=== PATIENT | female | born 1950 | race Caucasian/White ===

== ENCOUNTER 2019-02-21 10:25 | Inpatient (IN) ==
[2019-02-21] MEDS ORDERED: SODIUM CHLORIDE 0.9% 1000ML 1,000 ML IV SCH (10:45)
[2019-02-21 11:36] LABS: Basophils # (auto) 0.02 K/uL (0-0.2); Basophils % (auto) 0.1 %; Eosinophils # (auto) 0.02 K/uL (0-0.5); Eosinophils % (auto) 0.1 %; Hemoglobin 11.8 g/dL (12.0-16.0); Immature Granulocytes # (auto) 0.06 K/uL (0.00-0.02); Immature Granulocytes % (auto) 0.4 %; Lymphocytes # (auto) 2.44 K/uL (1.2-3.4); Lymphocytes % (auto) 14.8 %; Mean Corpuscular Hemoglobin 29.7 pg (25-34); Mean Corpuscular Hgb Conc 32.8 g/dL (32-36); Mean Corpuscular Volume 90.7 fL (80-100); Mean Platelet Volume 8.3 fL (7.4-10.4); Monocytes # (auto) 0.84 K/uL (0.11-0.59); Monocytes % (auto) 5.1 %; Neutrophils % (auto) 79.5 %; Platelet Count 482 K/uL (130-400); RDW Coefficient of Variation 12.7 % (11.5-14.5); RDW Standard Deviation 42.5 fL (36.4-46.3); Red Blood Count 3.97 M/uL (4.2-5.4); White Blood Count 16.48 K/uL (4.8-10.8)
[2019-02-21 11:38] LABS: iSTAT Creatinine 0.7 mg/dl (0.6-1.3); iSTAT Hemoglobin 12.2 g/dl (12.0-16.0); iSTAT Ionized Calcium 1.14 mmol/l (1.12-1.32); iSTAT Potassium 3.7 mEq/L (3.3-5.0)
[2019-02-21] MEDS ORDERED: IOVERSOL 100ml IV PRN (11:54)
[2019-02-21 11:55] LABS: Albumin Level 3.2 gm/dl (3.4-5.0); BUN Creatinine Ratio 15.4 (10-20); Calcium 8.9 mg/dl (8.5-10.1); Creatinine Clr Calc Pharmacy 63.8 ml/min; Est GFR (African American) 93.4; Est GFR (Non-African American) 80.6; Potassium 3.7 mmol/L (3.5-5.1)
[2019-02-21 11:57] LABS: Bilirubin,Total 0.8 mg/dl (0.2-1); C Reactive Protein 1.42 mg/dl (0-0.29); Globulin 3.1 gm/dl (2.5-4.0); Total Protein 6.3 gm/dl (6.4-8.2)
--- NOTE | 2019-02-21 12:13 | CT Scan Report ---
CT abd pelvis IV con only CT DOSE: 430.79 mGycm CLINICAL HISTORY: Perforated diverticulitis. TECHNIQUE: The patient was scanned in a dynamic helical fashion during intravenous administration of 95 cc of Optiray 320. A dose lowering technique was utilized adhering to the principles of ALARA. COMPARISON STUDY: None. FINDINGS: There are minor atelectatic changes at the lung bases. There are several calcified granulomas. There are no significant pleural effusions. No focal hepatic masses are visualized. No gallbladder abnormalities are visualized. No splenic masses are visualized. No pancreatic masses are visualized. There is minor left adrenal gland thickening. There are no solid renal masses. There is no evidence of hydronephrosis. There is no evidence for abdominal aortic dilatation. There are no transition zones indicate bowel obstruction. There is sausagelike thickening of the sigmoid colon with infiltration of the perisigmoid fat. There is a suspected 4 cm temporal/perisigmoid abscess. There is presacral edema. Follow-up will be necessa ry to exclude the possibility although unlikely of a underlying neoplasm. There are no findings to in dicate acute appendicitis. There is no free intraperitoneal air. There is no ascites. There is a small fat-containing left ingui nal hernia. There is no evidence of pathologic adenopathy. The uterus is somewhat bulky with areas of calcification. Multiple uterine fibroids are suspected. IMPRESSION: 1. Sausagelike thickening of the sigmoid colon with infiltration of perisigmoid fat and presacral devorah ma. The findings are indicative of sigmoid diverticulitis. There is associated 4 cm intramural/perisi gmoid abscess. 2. No evidence of bowel obstruction. No evidence of free air 3. Multiple uterine fibroids ACT 112: Negative or not required by law. Electronically signed by: Damion Nazario M.D. 02/21/2019 12:11 PM
[2019-02-21 12:20] LABS: Appearance Urine Clear (Clear); Bilirubin Urine Negative (Negative); Blood Urine Negative (Negative); Color Urine Yellow; Glucose Urine UA Negative (Negative); Ketones Urine Negative (Negative); Leukocyte Esterase Urine Negative (Negative); Nitrite Urine Negative (Negative); Protein Urine Negative (Negative); Specific Gravity Urine 1.004 (1.000-1.030); Urobilinogen Urine Negative (Negative); pH Urine 7.5 (4.5-7.5)
[2019-02-21] MEDS ORDERED: PIPERACILLIN/TAZOBACTAM 4.5 GM/120 ML BAG IV ONE (12:23)
[2019-02-21] MEDS ORDERED: PIPERACILL/TAZOBAC CONSULT ACTIVE PRN ×2 (12:23→14:36)
[2019-02-21] MEDS ORDERED: ACETAMINOPHEN 1,000 MG/100 ML VIAL IV STA (12:48)
--- NOTE | 2019-02-21 13:24 | History & Physical Report ---
Date of Service February 21, 2019 Assessment & Plan (1) Diverticulitis: Patient has acute recurrent diverticulitis complicated with a 4 cm abscess. For now we will admit, continue IV Zosyn as ordered in the ER. Patient to be n.p.o. except for meds and ice chips. Patient's information was reviewed by general surgery, will consult for further recommendations. Consider conservative management of the abscess versus possible percutaneous drainage, will defer to their service. Patient appears to be constipated on review of CT, patient started to have loose watery diarrhea, would consider C. difficile testing considering recent hospitalization with antibiotics. However, current constellation symptoms could be accounted for with current infection. Will also treat external hemorrhoids. (2) HTN (hypertension): Patient is on multiple medications for hypertension include hydrochlorothiazide and irbesartan, can continue these for now and monitor blood pressure. (3) High cholesterol: Patient takes we have a statin which we will continue. (4) Fibromyalgia: Review outpatient medication regimen and order accordingly. History of Present Illness Primary Care Provider: NO PCP This is a 68-year-old female with past medical history of diverticulitis, hypercholesterolemia, fibromyalgia that presents today complaining of abdominal pain. Patient is accompanied by her both are good historians. Patient is from [place] and is visiting this area to [facility] while her son and his travel. Patient was in the hospital in [place] earlier this month with acute diverticulitis and microperforation. She tells me she was hospitalized for a few days but did well and was subsequently discharged with Flagyl and Levaquin p.o. Patient traveled here and continue the antibiotics which she finished 5 days ago. She was doing well up until approximately 1:00 this morning when she had sharp, acute abdominal pain on the left side. She was having nausea but no vomiting. She recognized the symptoms as recurrent diverticulitis and presented to the emergency room for further evaluation. Patient is complaining of some hemorrhoidal pain as she has been having ongoing diarrhea. She notes that she was having diarrhea previously and C. difficile was considered as a diagnosis at the outside facility. However, she was never actually tested and was given a sample collection kit after discharge. She tells me her diarrhea has tapered off quite a bit since then and she does feel constipated at this point. She denies any acute fevers or chills. She also denies any chest pain, shortness of breath, lower extremity edema, palpitations. Allergies Allergy/AdvReac Type Severity Reaction Status Date / Time Sulfa (Sulfonamide Allergy Hives Unverified 02/21/19 12:40 Antibiotics) Home Medications Home Medications Medication Instructions Recorded Confirmed Type aspirin [Aspirin Low Dose] 81 mg PO DAILY 02/21/19 02/21/19 History cholecalciferol (vitamin D3) 800 unit PO UD 02/21/19 02/21/19 History [Vitamin D3] coenzyme Q10 [CoQ-10] 100 mg PO QPM 02/21/19 02/21/19 History garlic 1,000 mg PO QAM 02/21/19 02/21/19 History oqshaqyfbor-wcurfzeiz-olf C-Mn 0 cap PO QAM 02/21/19 02/21/19 History [Glucosamine Chondroitin MaxStr] hydrochlorothiazide 12.5 mg PO QAM 02/21/19 02/21/19 History irbesartan-hydrochlorothiazide 0.5 tab PO QAM 02/21/19 02/21/19 History isosorbide mononitrate 15 mg PO QPM 02/21/19 02/21/19 History loratadine [Claritin] 10 mg PO QAM 02/21/19 02/21/19 History metoprolol tartrate 12.5 mg PO BID 02/21/19 02/21/19 History multivitamin 1 tab PO QAM 02/21/19 02/21/19 History nitroglycerin 0.4 mg SUBLINGUAL DIRECTED PRN 02/21/19 02/21/19 History olopatadine [Patanol] 1 drp OPB BID 02/21/19 02/21/19 History omega 4-lcp-izb-fish oil [Fish Oil] 1 cap PO DAILY 02/21/19 02/21/19 History pantoprazole 40 mg PO DAILYBB 02/21/19 02/21/19 History rosuvastatin 20 mg PO 3XWK 02/21/19 02/21/19 History vit A,C and D-utuiag-auucrelx 1 tab PO QPM 02/21/19 02/21/19 History [Ocuvite with Lutein] vitamin B complex-folic acid [B 1 tab PO QPM 02/21/19 02/21/19 History Complex 1 (with folic acid)] Past Med/Surg History Medical History Fibromyalgia High cholesterol HTN (hypertension) Surgical History H/O tubal ligation Family History Other No pertinent family history Social History Feels Safe at Home: Yes Smoking Status: Never smoker Review of Systems Constitutional: + weakness; no fever, no chills and no fatigue Ear, Nose, Mouth, Throat: as per Subjective / HPI Respiratory: no cough, no chest congestion, no dyspnea and no dyspnea on exertion Cardiovascular: no chest pain, no dyspnea and no dyspnea on exertion Gastrointestinal: + abdominal pain, + bloating, + cramping, + constipation and + diarrhea/loose stools; no nausea and no vomiting Genitourinary: no dysuria, no difficulty urinating, no urinary frequency, no urinary hesitancy and no urinary urgency Integumentary: as per Subjective / HPI Neurologic: as per Subjective / HPI Psychiatric: as per Subjective / HPI Physical Exam Constitutional: well nourished and cooperative; no acute distress ENMT: external ear and nose normal, oropharynx normal Neck: trachea midline, no thyromegaly Respiratory: Auscultation: lungs clear to auscultation bilaterally; no crackles, no rales, no rhonchi and no wheezes Cardiovascular: Rate/Rhythm: regular rate and regular rhythm Heart Sounds: normal S1 and normal S2 Vessels: no JVD and no carotid bruit Gastrointestinal (Abdomen): Inspection/Auscultation: abdomen normal to inspection Percussion/Palpation: + abdomen tender and abdomen soft; no guarding, abdomen not rigid and no hepatosplenomegaly Musculoskeletal: no cyanosis or clubbing, extremities motor strength 5/5 Psychiatric: A+Ox3, euthymic affect Results & Data Vital Signs (Past 12 Hours) Vital Signs Temp Pulse Pulse Resp BP BP Pulse Ox 02/21/19 12:26 81 18 138/64 98 02/21/19 10:28 36.6 C 81 20 124/77 97 Laboratory Results White count is 16.48. Hemoglobin is 11.8. BMP is unremarkable. C-reactive protein is elevated at 1.42. UA is negative. Diagnostic Findings CT abd pelvis IV con only CT DOSE: 430.79 mGycm CLINICAL HISTORY: Perforated diverticulitis. TECHNIQUE: The patient was scanned in a dynamic helical fashion during intravenous administration of 95 cc of Optiray 320. A dose lowering technique was utilized adhering to the principles of ALARA. COMPARISON STUDY: None. FINDINGS: There are minor atelectatic changes at the lung bases. There are several calcified granulomas. There are no significant pleural effusions. No focal hepatic masses are visualized. No gallbladder abnormalities are visualized. No splenic masses are visualized. No pancreatic masses are visualized. There is minor left adrenal gland thickening. There are no solid renal masses. There is no evidence of hydronephrosis. There is no evidence for abdominal aortic dilatation. There are no transition zones indicate bowel obstruction. There is sausagelike thickening of the sigmoid colon with infiltration of the perisigmoid fat. There is a suspected 4 cm temporal/perisigmoid abscess. There is presacral edema. Follow-up will be necessary to exclude the possibility although unlikely of a underlying neoplasm. There are no findings to indicate a cute appendicitis. There is no free intraperitoneal air. There is no ascites. There is a small fat- containing left inguinal hernia. There is no evidence of pathologic adenopathy. The uterus is somewhat bulky with areas of calcification. Multiple uterine fibroids are suspected. IMPRESSION: 1. Sausagelike thickening of the sigmoid colon with infiltration of perisigmoid fat and presacral edema. The findings are indicative of sigmoid diverticulitis. There is associated 4 cm intramural/perisigmoid abscess. 2. No evidence of bowel obstruction. No evidence of free air 3. Multiple uterine fibroids PG Care Time/CCT Total # of Minutes Spent Total Time Spent with Patient: Total time spent is greater than 50% in coordination of care (as documented) at patient's floor/unit and/or counseling patient:
[2019-02-21] MEDS ORDERED: HYDROCORTISONE HC 2.5% CRM 30GM TUBE EXT PRN (14:36)
[2019-02-21] MEDS ORDERED: PIPERACILLIN/TAZOBACTAM 3.375 GM/115 ML BAG IV SCH (14:36)
[2019-02-21] MEDS ORDERED: ONDANSETRON INJ 2 MG/ML 2 ML VIAL IV PRN (14:36)
[2019-02-21] MEDS ORDERED: NITROGLYCERIN SL 0.4 MG/TAB TAB SL PRN (14:36)
--- NOTE | 2019-02-21 14:36 | Emergency Department Note ---
Entered by Marshal Pantoja acting as a scribe for Keshav Benoit DO History of Present Illness General Chief complaint: GI Assessment Stated complaint: PERFORATED BOWEL, GAS, UNCOMFORTABLE, DIARRHEA Time Seen by Provider: 02/21/19 10:32 Source: patient History of Present Illness Onset (ago): day(s) (yesterday) Location: abdomen Pain Consistency: + intermittent Maximum Pain Intensity: 3 Quality: + other (loose stool) Relieved By: + medication (Imodium) Associated symptoms: + denies other symptoms (fever, blood in stool); no nausea/vomiting The patient is a 68 y/o female who presents to the ED w/ CC of intermittent loose stool beginning yesterday. She notes she is visiting from [place]. The patient states she was diagnosed with diverticulitis two weeks ago and started on 10 d ays of Levaquin and Flagyl. She reports she finished her antibiotics four days ago, and she did not need surgery because it was medically managed. The patient notes she also has a history of IBS and believes that is also acting up. She states her symptoms returned yesterday, and she had over 20 small bouts of loose stool. The patient reports she called her PCP and was told to take three doses of Imodium. She notes her symptoms finally started to get better after her third dose which she took about 13 hours ago. The patient states she has had similar episodes of abdominal pain before but did not know what it was. She reports she thinks she took too much Imodium because now she knows she has a BM that is being held just before her rectum. The patient notes she is not able to use the restroom and is not able to use an enema per her PCP's guidance. She denies fevers, nausea, vomiting, blood in her stool, tobacco use, and alcohol use. She notes a history of HTN, fibromyalgia, high cholesterol, and a tubal ligation. Home Medications Home Medications Medication Instructions Recorded Confirmed Type aspirin [Aspirin Low Dose] 81 mg PO DAILY 02/21/19 02/21/19 History cholecalciferol (vitamin D3) 800 unit PO UD 02/21/19 02/21/19 History [Vitamin D3] coenzyme Q10 [CoQ-10] 100 mg PO QPM 02/21/19 02/21/19 History garlic 1,000 mg PO QAM 02/21/19 02/21/19 History nowemtafhnz-quexkmcwm-tip C-Mn 0 cap PO QAM 02/21/19 02/21/19 History [Glucosamine Chondroitin MaxStr] hydrochlorothiazide 12.5 mg PO QAM 02/21/19 02/21/19 History irbesartan-hydrochlorothiazide 0.5 tab PO QAM 02/21/19 02/21/19 History isosorbide mononitrate 15 mg PO QPM 02/21/19 02/21/19 History loratadine [Claritin] 10 mg PO QAM 02/21/19 02/21/19 History metoprolol tartrate 12.5 mg PO BID 02/21/19 02/21/19 History multivitamin 1 tab PO QAM 02/21/19 02/21/19 History nitroglycerin 0.4 mg SUBLINGUAL DIRECTED PRN 02/21/19 02/21/19 History olopatadine [Patanol] 1 drp OPB BID 02/21/19 02/21/19 History omega 9-urq-tyf-fish oil [Fish Oil] 1 cap PO DAILY 02/21/19 02/21/19 History pantoprazole 40 mg PO DAILYBB 02/21/19 02/21/19 History rosuvastatin 20 mg PO 3XWK 02/21/19 02/21/19 History vit A,C and O-bxdwzd-nzzzsmzr 1 tab PO QPM 02/21/19 02/21/19 History [Ocuvite with Lutein] vitamin B complex-folic acid [B 1 tab PO QPM 02/21/19 02/21/19 History Complex 1 (with folic acid)] Allergies Allergy/AdvReac Type Severity Reaction Status Date / Time Sulfa (Sulfonamide Allergy Hives Unverified 02/21/19 12:40 Antibiotics) Past Med/Surg History Medical History Fibromyalgia High cholesterol HTN (hypertension) Surgical History H/O tubal ligation Family History Other No pertinent family history Social History Feels Safe at Home: Yes Smoking Status: Never smoker Review of Systems See HPI for pertinent positives & negatives. and A total of 10 systems reviewed and were otherwise negative Physical Exam Vital Signs Vital Signs - 24 hr 02/21/19 10:28 02/21/19 12:26 Temperature 36.6 C Temperature Source Oral Pulse Rate 81 Pulse Rate [Finger] 81 Respiratory Rate 20 18 Respiratory Effort / Characteristics Non-Labored Non-Labored Spontaneous Respiratory Depth Normal Normal Respiratory Pattern Regular Regular Blood Pressure 124/77 Blood Pressure [Right Arm] 138/64 Blood Pressure Mean 92 Blood Pressure Mean [Right Arm] 88 Blood Pressure Position Sitting Pulse Oximetry 97 98 Oxygen Delivery Method Room Air Room Air Sepsis Recent Fever Within 48 Hours No Sepsis Action Taken by Nursing No Action Required GENERAL: Patient is awake, alert, and in no acute distress.Patient is resting comfortably and showing no signs of anxiety EYES: The conjunctivae are clear. The pupils are round and reactive. EARS, NOSE, MOUTH AND THROAT: The nose is without any evidence of any deformity. Mucous membranes are moist.Tongue is midline NECK: The neck is nontender and supple. RESPIRATORY: Normal respiratory effort is noted. There is no evidence of wheezing rhonchi or rales to auscultation. CARDIOVASCULAR: Regular rate and rhythm noted. There no murmurs rubs or gallops normal S1 normal S2 GASTROINTESTINAL: The abdomen is soft. Bowel sounds are present in all quadrants. Mildly distended. Left sided tenderness to palpation without guarding or rigidity. MUSCULOSKELETAL/EXTREMITIES: There is no evidence of gross deformity. Full range of motion is noted in the hips and shoulders. SKIN: There is no obvious evidence of any rash. There are no petechiae, pallor or cyanosis noted. NEUROLOGIC: Patient is awake alert and oriented x3. Course Course 1042: Past medical records reviewed. The patient was evaluated in room B04B. A complete history and physical exam was performed. 1229: Upon reevaluation, the patient is resting comfortably. I discussed laboratory and radiographic results with her. 1238: I reviewed the patient's case with Arturo Chang PA-C, General Surgery. He recommends a hospitalist evaluation with a general surgery consult. 1254: I discussed my consult with the patient. She verbalized agreement of the treatment plan. The patient will be evaluated for further management and care. 1255: I reviewed the patient's case with Dr. Mcclain, [facility] Hospitalist. He will evaluate the patient for further management. Administered Medications Ioversol (Optiray 320 100ml) 95 ml IV ONCE PRN PRN Reason: Interaction Checking Stop: 02/25/19 11:53 Last Admin: 02/21/19 11:55 Dose: 95 ml Documented by: [id number] Discontinued Medications Sodium Chloride (Nss 1000ml) 1,000 mls @ 999 mls/hr IV .Q1H1M DELLA Stop: 02/21/19 11:45 Last Infusion: 02/21/19 13:56 Dose: 0 mls/hr Documented by: [id number] Admin: 02/21/19 11:40 Dose: 999 mls/hr Documented by: [id number] Piperacillin Sod/Tazobactam Sod (Zosyn) 4.5 gm in 120 mls @ 240 mls/hr IV NOW ONE Stop: 02/21/19 12:52 Last Infusion: 02/21/19 13:10 Dose: 0 mls/hr Documented by: [id number] Admin: 02/21/19 12:30 Dose: 240 mls/hr Documented by: [id number] Acetaminophen (Ofirmev) 1,000 mg in 100 mls @ 400 mls/hr IV NOW STA Stop: 02/21/19 13:02 Last Infusion: 02/21/19 13:25 Dose: 0 mls/hr Documented by: [id number] Admin: 02/21/19 13:08 Dose: 400 mls/hr Documented by: [id number] Medical Decision Making Differential Diagnosis Differential diagnoses includes but is not limited to gastritis, peptic ulcer disease, GERD, gallbladder disease, pancreatitis, small bowel obstruction, acute coronary syndrome, pericarditis, ischemic bowel, irritable bowel disease, irritable bowel syndrome, appendicitis, diverticulitis, malignancy, hernia, urinary tract infection, torsion, perforation, trauma, infectious. Medical Records Attestation: I reviewed the patient's medical records. Home Medications Current Medication List: was personally reviewed by me Laboratory Data Attestation: I reviewed the patient's lab results. Result diagrams: 02/21/19 11:20 02/21/19 11:20 Lab Results 02/21/19 02/21/19 02/21/19 Range/Units 11:20 11:20 11:20 WBC 16.48 H (4.8-10.8) K/uL RBC 3.97 L (4.2-5.4) M/uL Hgb 11.8 L (12.0-16.0) g/dL POC Hgb (12.0-16.0) g/dl Hct 36.0 L (37-47) % POC Hct (37-47) % MCV 90.7 (80-100) fL MCH 29.7 (25-34) pg MCHC 32.8 (32-36) g/dL RDW Std Deviation 42.5 (36.4-46.3) fL RDW Coeff of Mary 12.7 (11.5-14.5) % Plt Count 482 H (130-400) K/uL MPV 8.3 (7.4-10.4) fL Immature Gran % (Auto) 0.4 % Neut % (Auto) 79.5 % Lymph % (Auto) 14.8 % Hall % (Auto) 5.1 % Eos % (Auto) 0.1 % Baso % (Auto) 0.1 % Immature Gran # (Auto) 0.06 H (0.00-0.02) K/uL Neut # (Auto) 13.10 H (1.4-6.5) K/uL Lymph # (Auto) 2.44 (1.2-3.4) K/uL Hall # (Auto) 0.84 H (0.11-0.59) K/uL Eos # (Auto) 0.02 (0-0.5) K/uL Baso # (Auto) 0.02 (0-0.2) K/uL ESR 31 H (0-21) mm/hr POC Sodium (135-144) mEq/L Sodium 135 L (136-145) mmol/L POC Potassium (3.3-5.0) mEq/L Potassium 3.7 (3.5-5.1) mmol/L POC Chloride (101-112) mEq/L Chloride 100 (98-107) mmol/L Carbon Dioxide 32 (21-32) mmol/L POC Total CO2 (24-31) mEq/l Anion Gap 3.0 (3-11) POC Anion Gap (16-25) mmol/L POC BUN (7-18) mg/dl BUN 12 (7-18) mg/dl Creatinine 0.76 (0.6-1.2) mg/dl POC Creatinine (0.6-1.3) mg/dl Est Cr Clr Drug Dosing 63.8 ml/min Est GFR ( Amer) 93.4 Est GFR (Non-Af Amer) 80.6 BUN/Creatinine Ratio 15.4 (10-20) Glucose 97 (70-99) mg/dl POC Glucose (other) (70-99) mg/dl Calcium 8.9 (8.5-10.1) mg/dl POC Ioniz Calcium Leidy (1.12-1.32) mmol/l Total Bilirubin 0.8 (0.2-1) mg/dl AST 32 (15-37) U/L ALT 39 (12-78) U/L Alkaline Phosphatase 70 (45-117) U/L C-Reactive Protein 1.42 H (0-0.29) mg/dl Total Protein 6.3 L (6.4-8.2) gm/dl Albumin 3.2 L (3.4-5.0) gm/dl Globulin 3.1 (2.5-4.0) gm/dl Albumin/Globulin Ratio 1.0 (0.9-2) Lipase 55 L (73-393) U/L Urine Color Urine Appearance (Clear) Urine pH (4.5-7.5) Ur Specific Mayer (1.000-1.030) Urine Protein (Negative) Urine Glucose (UA) (Negative) Urine Ketones (Negative) Urine Blood (Negative) Urine Nitrite (Negative) Urine Bilirubin (Negative) Urine Urobilinogen (Negative) Ur Leukocyte Esterase (Negative) 02/21/19 02/21/19 Range/Units 11:23 12:00 WBC (4.8-10.8) K/uL RBC (4.2-5.4) M/uL Hgb (12.0-16.0) g/dL POC Hgb 12.2 (12.0-16.0) g/dl Hct (37-47) % POC Hct 36 L (37-47) % MCV (80-100) fL MCH (25-34) pg MCHC (32-36) g/dL RDW Std Deviation (36.4-46.3) fL RDW Coeff of Mary (11.5-14.5) % Plt Count (130-400) K/uL MPV (7.4-10.4) fL Immature Gran % (Auto) % Neut % (Auto) % Lymph % (Auto) % Hall % (Auto) % Eos % (Auto) % Baso % (Auto) % Immature Gran # (Auto) (0.00-0.02) K/uL Neut # (Auto) (1.4-6.5) K/uL Lymph # (Auto) (1.2-3.4) K/uL Hall # (Auto) (0.11-0.59) K/uL Eos # (Auto) (0-0.5) K/uL Baso # (Auto) (0-0.2) K/uL ESR (0-21) mm/hr POC Sodium 134 L (135-144) mEq/L Sodium (136-145) mmol/L POC Potassium 3.7 (3.3-5.0) mEq/L Potassium (3.5-5.1) mmol/L POC Chloride 95 L (101-112) mEq/L Chloride (98-107) mmol/L Carbon Dioxide (21-32) mmol/L POC Total CO2 30 (24-31) mEq/l Anion Gap (3-11) POC Anion Gap 14.0 L (16-25) mmol/L POC BUN 11 (7-18) mg/dl BUN (7-18) mg/dl Creatinine (0.6-1.2) mg/dl POC Creatinine 0.7 (0.6-1.3) mg/dl Est Cr Clr Drug Dosing ml/min Est GFR ( Amer) Est GFR (Non-Af Amer) BUN/Creatinine Ratio (10-20) Glucose (70-99) mg/dl POC Glucose (other) 100 H (70-99) mg/dl Calcium (8.5-10.1) mg/dl POC Ioniz Calcium Leidy 1.14 (1.12-1.32) mmol/l Total Bilirubin (0.2-1) mg/dl AST (15-37) U/L ALT (12-78) U/L Alkaline Phosphatase (45-117) U/L C-Reactive Protein (0-0.29) mg/dl Total Protein (6.4-8.2) gm/dl Albumin (3.4-5.0) gm/dl Globulin (2.5-4.0) gm/dl Albumin/Globulin Ratio (0.9-2) Lipase (73-393) U/L Urine Color Yellow Urine Appearance Clear (Clear) Urine pH 7.5 (4.5-7.5) Ur Specific Mayer 1.004 (1.000-1.030) Urine Protein Negative (Negative) Urine Glucose (UA) Negative (Negative) Urine Ketones Negative (Negative) Urine Blood Negative (Negative) Urine Nitrite Negative (Negative) Urine Bilirubin Negative (Negative) Urine Urobilinogen Negative (Negative) Ur Leukocyte Esterase Negative (Negative) Imaging Data Radiologist's Impression: Radiology results as stated below per my review and the radiologist's interpretation: CT abd pelvis IV con only CT DOSE: 430.79 mGycm CLINICAL HISTORY: Perforated diverticulitis. TECHNIQUE: The patient was scanned in a dynamic helical fashion during intravenous administration of 95 cc of Optiray 320. A dose lowering technique was utilized adhering to the principles of ALARA. COMPARISON STUDY: None. FINDINGS: There are minor atelectatic changes at the lung bases. There are several calcified granulomas. There are no significant pleural effusions. No focal hepatic masses are visualized. No gallbladder abnormalities are visualized. No splenic masses are visualized. No pancreatic masses are visualized. There is minor left adrenal gland thickening. There are no solid renal masses. There is no evidence of hydronephrosis. There is no evidence for abdominal aortic dilatation. There are no transition zones indicate bowel obstruction. There is sausagelike thickening of the sigmoid colon with infiltration of the perisigmoid fat. There is a suspected 4 cm temporal/perisigmoid abscess. There is presacral edema. Follow-up will be necessary to exclude the possibility although unlikely of a underlying neoplasm. There are no findings to indicate acute appendicitis. There is no free intraperitoneal air. There is no ascites. There is a small fat- containing left inguinal hernia. There is no evidence of pathologic adenopathy. The uterus is somewhat bulky with areas of calcification. Multiple uterine fibroids are suspected. IMPRESSION: 1. Sausagelike thickening of the sigmoid colon with infiltration of perisigmoid fat and presacral edema. The findings are indicative of sigmoid diverticulitis. There is associated 4 cm intramural/perisigmoid abscess. 2. No evidence of bowel obstruction. No evidence of free air 3. Multiple uterine fibroids ACT 112: Negative or not required by law. Electronically signed by: Damion Nazario M.D. 02/21/2019 12:11 PM Blood Pressure Blood Pressure Findings: Elevated blood pressure Blood Pressure Disposition: further management by hospitalist MDM Narrative The patient is a 68-year-old female who presented to the emergency department for an evaluation of left-sided abdominal pain. The patient was recently diagnosed with diverticulitis with microperforation. She was started on a course of antibiotics but finished antibiotics approximately 5 days ago. She noticed a return of her pain recently. She is not currently near her home and is visiting from out of town. The patient was treated with IV fluids and IV antibiotics. She was reevaluated multiple times. I discussed the patient's laboratory and radiographic studies with her. She does appear to have signs of diverticulitis with abscess. I discussed her case with the on-call general surgical group. They did recommend the patient be admitted to the medicine team for further medical treatment and they would follow in consultation. I discussed this case with the on-call [facility] hospitalist group. They have agreed to evaluate the patient in the emergency department for further ma nagement and disposition. The patient was agreeable with the plan. Impression & Plan Diverticulitis, Colonic diverticular abscess, Left sided abdominal pain Discharge Plan Visit Data Chief Complaint: GI Assessment Stated Complaint: PERFORATED BOWEL, GAS, UNCOMFORTABLE, DIARRHEA ED Provider: Keshav Benoit Discharge Problem: Diverticulitis, Colonic diverticular abscess, Left sided abdominal pain Patient Disposition: Being Evaluated by Hospitalist Discharge Instructions Interventions: ED Discharge Assessment Last Done: 02/21/19 14:05 The scribe's documentation has been prepared under my direction and personally reviewed by me in its entirety. I confirm that the note above accurately reflects all work, treatment, procedures, and medical decision making performed by me.
--- NOTE | 2019-02-21 14:39 | Surgery Consultation ---
Date of Consultation February 21, 2019 Assessment & Plan (1) Colonic diverticular abscess: Diverticulitis with abscess, no acute abdominal findings. Continue IV Zosyn. Monitor her progress over the next 24-48 hours, she is scheduled to return to [place] on Sunday. Keep NPO for tonight. History of Present Illness Attending Physician: Adriano Mcclain DO History of Present Illness 68 y/o female recently treated for diverticulitis with microperforation at her home in [place]. She is town to babysit her grandchildren while her son attends the [employer]. This was her first known attack, although she had some symptoms in the past not as severe. She was admitted for a few days, discharged on po abx which she finished on Sunday. She was feeling well until 1 AM last night when her pain returned acutely. No fevers or chills. Has been having loose BMs and was eating regular diet. Allergies Allergy/AdvReac Type Severity Reaction Status Date / Time Sulfa (Sulfonamide Allergy Hives Unverified 02/21/19 12:40 Antibiotics) Home Medications Home Medications Medication Instructions Recorded Confirmed Type aspirin [Aspirin Low Dose] 81 mg PO DAILY 02/21/19 02/21/19 History cholecalciferol (vitamin D3) 800 unit PO UD 02/21/19 02/21/19 History [Vitamin D3] coenzyme Q10 [CoQ-10] 100 mg PO QPM 02/21/19 02/21/19 History garlic 1,000 mg PO QAM 02/21/19 02/21/19 History cqpufppbzce-cauamobve-cqo C-Mn 0 cap PO QAM 02/21/19 02/21/19 History [Glucosamine Chondroitin MaxStr] hydrochlorothiazide 12.5 mg PO QAM 02/21/19 02/21/19 History irbesartan-hydrochlorothiazide 0.5 tab PO QAM 02/21/19 02/21/19 History isosorbide mononitrate 15 mg PO QPM 02/21/19 02/21/19 History loratadine [Claritin] 10 mg PO QAM 02/21/19 02/21/19 History metoprolol tartrate 12.5 mg PO BID 02/21/19 02/21/19 History multivitamin 1 tab PO QAM 02/21/19 02/21/19 History nitroglycerin 0.4 mg SUBLINGUAL DIRECTED PRN 02/21/19 02/21/19 History olopatadine [Patanol] 1 drp OPB BID 02/21/19 02/21/19 History omega 0-iwa-qkc-fish oil [Fish Oil] 1 cap PO DAILY 02/21/19 02/21/19 History pantoprazole 40 mg PO DAILYBB 02/21/19 02/21/19 History rosuvastatin 20 mg PO 3XWK 02/21/19 02/21/19 History vit A,C and C-xxvrzj-hufwnmiu 1 tab PO QPM 02/21/19 02/21/19 History [Ocuvite with Lutein] vitamin B complex-folic acid [B 1 tab PO QPM 02/21/19 02/21/19 History Complex 1 (with folic acid)] Patient History Medical History Fibromyalgia High cholesterol HTN (hypertension) Surgical History H/O tubal ligation Family History Other No pertinent family history Social History Preferred Language: [place] Communication Ability: Effective Health Aide Required: No Beliefs That Will Affect Care: None Current Living Situation: Spouse Other Information That Helps Us Care for You: No Feels Safe at Home: Yes Safety Concerns: Feels Safe At This Time Smoking Status: Never smoker Hx Alcohol Use: No Hx Substance Use: No Review of Systems Constitutional: no fever, no chills and no anorexia Gastrointestinal: + diarrhea/loose stools; no nausea colonoscopy in 2018, diverticulosis and polypectomy Physical Exam Constitutional: WD/WN, vitals as above Respiratory: normal respiratory effort Cardiovascular: RRR, no murmur, no edema Gastrointestinal (Abdomen): Inspection/Auscultation: abdomen not distended Percussion/Palpation: + abdomen tender (minimal) and abdomen soft; no guarding Results & Data Vital Signs (Past 12 Hours) Vital Signs Temp Pulse Pulse Resp BP BP Pulse Ox 02/21/19 14:00 82 18 111/56 L 93 02/21/19 12:26 81 18 138/64 98 02/21/19 10:28 36.6 C 81 20 124/77 97 PG Care Time/CCT Total # of Minutes Spent Total Time Spent with Patient: Total time spent is greater than 50% in coordination of care (as documented) at patient's floor/unit and/or counseling patient:
[2019-02-21] MEDS: SODIUM CHLORIDE 0.9% 1000ML 1,000 ML IV SCH ×2 (15:08→23:54)
[2019-02-21] MEDS: ROSUVASTATIN CALCIUM 20 MG TAB PO SCH (15:57)
[2019-02-21] MEDS: ENOXAPARIN INJ 40 MG/0.4 ML SYR SQ SCH (15:58)
[2019-02-21] MEDS: CHOLECALCIFEROL (VITAMIN D) 400 UNITS TABLET PO SCH (15:58)
[2019-02-21] MEDS: PIPERACILLIN/TAZOBACTAM 3.375 GM in DEXTROSE 5% 100 ML IV SCH (19:54)
[2019-02-21] MEDS ORDERED: NON-FORMULARY MEDICATION (Coenzyme Q10 [Coq-10] 100 MG) PO SCH (21:00)
[2019-02-21] MEDS: ISOSORBIDE MONO EXTENDED REL 30 MG TABCR PO SCH (21:33)
[2019-02-21] MEDS: METOPROLOL TARTRATE 25 MG TAB PO SCH (21:34)
[2019-02-21] MEDS: VITAMIN B COMPLEX TAB PO SCH (21:34)
[2019-02-21] MEDS: CEROVITE ADV FORMULA TAB PO SCH (21:34)
[2019-02-21] MEDS: ACETAMINOPHEN 325 MG TAB PO PRN (21:58)
[2019-02-22] MEDS: PIPERACILLIN/TAZOBACTAM 3.375 GM in DEXTROSE 5% 100 ML IV SCH ×3 (02:24→17:50)
[2019-02-22 05:37] LABS: Basophils # (auto) 0.01 K/uL (0-0.2); Basophils % (auto) 0.1 %; Eosinophils # (auto) 0.02 K/uL (0-0.5); Eosinophils % (auto) 0.1 %; Hematocrit (blood only) 31.9 % (37-47); Hemoglobin 10.3 g/dL (12.0-16.0); Immature Granulocytes # (auto) 0.04 K/uL (0.00-0.02); Immature Granulocytes % (auto) 0.3 %; Lymphocytes # (auto) 1.43 K/uL (1.2-3.4); Mean Corpuscular Hemoglobin 29.2 pg (25-34); Mean Corpuscular Hgb Conc 32.3 g/dL (32-36); Mean Corpuscular Volume 90.4 fL (80-100); Mean Platelet Volume 8.1 fL (7.4-10.4); Monocytes # (auto) 1.03 K/uL (0.11-0.59); Monocytes % (auto) 7.2 %; Neutrophils # (auto) 11.72 K/uL (1.4-6.5); Neutrophils % (auto) 82.3 %; Platelet Count 417 K/uL (130-400); RDW Coefficient of Variation 13.2 % (11.5-14.5); RDW Standard Deviation 43.2 fL (36.4-46.3); Red Blood Count 3.53 M/uL (4.2-5.4); White Blood Count 14.25 K/uL (4.8-10.8)
[2019-02-22 06:04] LABS: Calcium 8.2 mg/dl (8.5-10.1); Creatinine Clr Calc Pharmacy 73.8 ml/min; Est GFR (African American) 101.4; Est GFR (Non-African American) 87.5; Potassium 3.5 mmol/L (3.5-5.1)
[2019-02-22] MEDS: PANTOprazole 40 MG TAB PO SCH (06:28)
--- NOTE | 2019-02-22 08:21 | Surgery Progress Note ---
Date of Service February 22, 2019 Assessment & Plan (1) Colonic diverticular abscess: can begin clears WBC improved cont Zosyn also seen by Dr. Garcia Subjective feels better, BM this AM, no fevers or chills Physical Exam Gastrointestinal (Abdomen): Percussion/Palpation: abdomen soft; abdomen nontender Results & Data Vital Signs (Past 12 Hours) Vital Signs Temp Pulse Resp BP Pulse Ox 02/22/19 08:05 37.1 C 76 18 134/74 97 02/22/19 00:26 37 C 02/21/19 23:10 37.5 C 72 18 97/57 L 93 PG Care Time/CCT Total # of Minutes Spent Total Time Spent with Patient: Total time spent is greater than 50% in coordination of care (as documented) at patient's floor/unit and/or counseling patient:
[2019-02-22] MEDS ORDERED: MULTIVITAMIN TAB PO SCH (09:00)
[2019-02-22] MEDS ORDERED: IRBESARTAN 75 MG TAB PO SCH (09:00)
[2019-02-22] MEDS: LACTOBACILLUS ACIDOPHILUS 1 GM PACK PO SCH ×3 (09:20→17:49)
[2019-02-22] MEDS: IRBESARTAN 75 MG TAB PO SCH (09:22)
[2019-02-22] MEDS: ASPIRIN 81 MG ECTAB PO SCH (09:22)
[2019-02-22] MEDS: LORATADINE 10 MG TAB PO SCH (09:22)
[2019-02-22] MEDS: hydroCHLOROthiazide 25 MG TAB PO SCH (09:23)
[2019-02-22] MEDS: METOPROLOL TARTRATE 25 MG TAB PO SCH ×2 (09:24→21:26)
[2019-02-22] MEDS: OMEGA-3 (PURIFIED FISH OIL) 1 GM CAP PO SCH (09:25)
[2019-02-22] MEDS: CHOLECALCIFEROL (VITAMIN D) 400 UNITS TABLET PO SCH (09:25)
[2019-02-22] MEDS: SODIUM CHLORIDE 0.9% 1000ML 1,000 ML IV SCH ×2 (10:15→20:31)
--- NOTE | 2019-02-22 13:07 | Hospitalist Progress Note ---
Date of Service February 22, 2019 Assessment & Plan (1) Diverticulitis: Patient has acute recurrent diverticulitis complicated with a 4 cm abscess. - continue IV Zosyn as ordered in the ER. - advanced to clears per surgery - C diff pending - consulted surgery - leukocytosis and symptoms improving, no surgery for now. Would consider rescanning before discharge to ensure resolution of abscess as patient has to travel back to [place] on Sunday (2) HTN (hypertension): Continue hydrochlorothiazide and irbesartan (3) High cholesterol: Continue home statin (4) Fibromyalgia: Patient does not appear to take medicines for this Subjective Ms. Burton is feeling better today. She had a formed bowel movement over night, no nausea or vomiting ROS Constitutional: no chills, aches, sweats or fever Respiratory: no sob,cough, sputum, or wheezing Cardiac: no chest pain, palpitations, edema, orthopnea or lightheadedness GI: no abdominal pain, nausea, vomiting, diarrhea or constipation : no dysuria or hesitancy Extremities: no joint pain or weakness Skin: no rash All other systems reviewed and negative Physical Exam Physical Exam: General: no distress Eyes: normal inspection, PERLL Respiratory: chest non tender, clear to auscultation, normal breath sounds, no respiratory distress, no accessory muscle use Cardiac: regular rate and rhythm, no rub or gallop, no murmur, no edema, no jvd GI/: active bowel sounds, no abd pain or tenderness, soft, non distended Extremities: normal range of motion, normal strength, non tender Neuro/Psych: alert and oriented x 3, normal mood and affect Skin: normal color, dry Results & Data Vital Signs (Past 12 Hours) Vital Signs Temp Pulse Resp BP Pulse Ox 02/22/19 08:05 37.1 C 76 18 134/74 97 PG Care Time/CCT Total # of Minutes Spent Total Time Spent with Patient: Total time spent is greater than 50% in coordination of care (as documented) at patient's floor/unit and/or counseling patient:
[2019-02-22] MEDS: ENOXAPARIN INJ 40 MG/0.4 ML SYR SQ SCH (17:50)
[2019-02-22] MEDS: CEROVITE ADV FORMULA TAB PO SCH (21:25)
[2019-02-22] MEDS: VITAMIN B COMPLEX TAB PO SCH (21:26)
[2019-02-22] MEDS: ISOSORBIDE MONO EXTENDED REL 30 MG TABCR PO SCH (21:27)
[2019-02-22] MEDS ORDERED: DOCUSATE SODIUM 100 MG CAP PO ONE (22:12)
[2019-02-23] MEDS: PIPERACILLIN/TAZOBACTAM 3.375 GM in DEXTROSE 5% 100 ML IV SCH ×3 (03:18→17:19)
[2019-02-23] MEDS: PANTOprazole 40 MG TAB PO SCH (06:08)
[2019-02-23] MEDS: SODIUM CHLORIDE 0.9% 1000ML 1,000 ML IV SCH ×2 (06:08→15:33)
[2019-02-23] MEDS: OMEGA-3 (PURIFIED FISH OIL) 1 GM CAP PO SCH (07:12)
[2019-02-23] MEDS: ASPIRIN 81 MG ECTAB PO SCH (07:13)
[2019-02-23] MEDS: ISOSORBIDE MONO EXTENDED REL 30 MG TABCR PO SCH (07:13)
[2019-02-23] MEDS: LORATADINE 10 MG TAB PO SCH (07:13)
[2019-02-23] MEDS: METOPROLOL TARTRATE 25 MG TAB PO SCH ×2 (07:14→20:26)
[2019-02-23] MEDS: CHOLECALCIFEROL (VITAMIN D) 400 UNITS TABLET PO SCH (07:16)
[2019-02-23] MEDS: IRBESARTAN 75 MG TAB PO SCH (07:17)
[2019-02-23] MEDS: hydroCHLOROthiazide 25 MG TAB PO SCH (07:18)
[2019-02-23] MEDS: LACTOBACILLUS ACIDOPHILUS 1 GM PACK PO SCH ×3 (07:19→15:34)
[2019-02-23 08:28] LABS: Basophils # (auto) 0.01 K/uL (0-0.2); Basophils % (auto) 0.1 %; Eosinophils # (auto) 0.02 K/uL (0-0.5); Eosinophils % (auto) 0.2 %; Hematocrit (blood only) 29.6 % (37-47); Hemoglobin 9.8 g/dL (12.0-16.0); Immature Granulocytes # (auto) 0.03 K/uL (0.00-0.02); Immature Granulocytes % (auto) 0.2 %; Lymphocytes # (auto) 1.92 K/uL (1.2-3.4); Lymphocytes % (auto) 15.1 %; Mean Corpuscular Hgb Conc 33.1 g/dL (32-36); Mean Corpuscular Volume 90.5 fL (80-100); Mean Platelet Volume 8.5 fL (7.4-10.4); Monocytes # (auto) 1.26 K/uL (0.11-0.59); Monocytes % (auto) 9.9 %; Neutrophils # (auto) 9.47 K/uL (1.4-6.5); Neutrophils % (auto) 74.5 %; Platelet Count 384 K/uL (130-400); RDW Coefficient of Variation 13.2 % (11.5-14.5); RDW Standard Deviation 43.5 fL (36.4-46.3); Red Blood Count 3.27 M/uL (4.2-5.4); White Blood Count 12.71 K/uL (4.8-10.8)
[2019-02-23 08:55] LABS: BUN Creatinine Ratio 8.5 (10-20); Calcium 8.3 mg/dl (8.5-10.1); Creatinine Clr Calc Pharmacy 74.9 ml/min; Est GFR (African American) 103.2; Potassium 3.2 mmol/L (3.5-5.1)
[2019-02-23] MEDS: DOCUSATE SODIUM 100 MG CAP PO SCH ×2 (10:52→20:26)
--- NOTE | 2019-02-23 11:14 | Surgery Progress Note ---
Date of Service February 23, 2019 Assessment & Plan (1) Colonic diverticular abscess: WBC downtrending , 12.7 today Continue on IV abx today Patient having some abdominal gas pains despite passing some flatus and having a BM. Would continue on clear liquids until symptoms improve Encourage activity as tolerates Replete electrolytes as needed, K 3.2 today Can consider re-scanning at OSH near her home if needed in 7-10 days She is hopeful to be able to catch her flight on Sunday to Patient seen and examined with Dr. Garcia Subjective Patient says she feels "okay" today. She is passing flatus and had a formed BM yesterday, but still feels as though she needs to pass more. Having some abdominal gas like pains. She is tolerating clear liquids. Physical Exam Physical Exam: awake/alert Constitutional: well developed and well nourished; no acute distress Gastrointestinal (Abdomen): Percussion/Palpation: abdomen soft Results & Data Vital Signs (Past 12 Hours) Vital Signs Temp Pulse Resp BP Pulse Ox Pulse Ox 02/23/19 08:20 97 02/23/19 07:45 36.9 C 63 16 121/67 97 02/22/19 23:46 37.5 C PG Care Time/CCT Total # of Minutes Spent Total Time Spent with Patient: Total time spent is greater than 50% in coor dination of care (as documented) at patient's floor/unit and/or counseling patient:
[2019-02-23] MEDS: ENOXAPARIN INJ 40 MG/0.4 ML SYR SQ SCH (15:33)
--- NOTE | 2019-02-23 15:45 | Hospitalist Progress Note ---
Date of Service February 23, 2019 Assessment & Plan (1) Diverticulitis: Patient has acute recurrent diverticulitis complicated with a 4 cm abscess. - continue IV Zosyn as ordered in the ER. - advanced to clears per surgery - leukocytosis improving - consulted surgery - leukocytosis and symptoms improving, no surgery for now. Surgery recommends she have follow up imaging in 7-10 days. Patient is planning to fly home on Sunday of possible (2) HTN (hypertension): Continue hydrochlorothiazide and irbesartan (3) High cholesterol: Continue home statin (4) Fibromyalgia: Patient does not appear to take medicines for this (5) Hypokalemia: replaced, prp am Subjective Ms. Burton is feeling good other than some gas pains. She has no nausea or vomiting. No other complaints ROS Constitutional: no chills, aches, sweats or fever Respiratory: no sob,cough, sputum, or wheezing Cardiac: no chest pain, palpitations, edema, orthopnea or lightheadedness GI: see HPI : no dysuria or hesitancy Extremities: no joint pain or weakness Skin: no rash All other systems reviewed and negative Physical Exam Physical Exam: General: no distress Eyes: normal inspection, PERLL Respiratory: chest non tender, clear to auscultation, normal breath sounds, no respiratory distress, no accessory muscle use Cardiac: regular rate and rhythm, no rub or gallop, no murmur, no edema, no jvd GI/: active bowel sounds, no abd pain or tenderness, soft, non distended Extremities: normal range of motion, normal strength, non tender Neuro/Psych: alert and oriented x 3, normal mood and affect Skin: normal color, dry Results & Data Vital Signs (Past 12 Hours) Vital Signs Temp Pulse Resp BP Pulse Ox Pulse Ox 02/23/19 15:11 36.7 C 67 18 126/70 95 02/23/19 08:20 97 02/23/19 07:45 36.9 C 63 16 121/67 97 PG Care Time/CCT Total # of Minutes Spent Total Time Spent with Patient: Total time spent is greater than 50% in coordination of care (as documented) at patient's floor/unit and/or counseling patient:
[2019-02-23] MEDS ORDERED: POTASSIUM CHLORIDE 20 MEQ TABCR PO STA (15:46)
[2019-02-23] MEDS: VITAMIN B COMPLEX TAB PO SCH (20:27)
[2019-02-23] MEDS: CEROVITE ADV FORMULA TAB PO SCH (20:27)
[2019-02-23] MEDS: ACETAMINOPHEN 325 MG TAB PO PRN (23:34)
[2019-02-24] MEDS: PIPERACILLIN/TAZOBACTAM 3.375 GM in DEXTROSE 5% 100 ML IV SCH ×2 (01:05→09:36)
[2019-02-24] MEDS: SODIUM CHLORIDE 0.9% 1000ML 1,000 ML IV SCH ×2 (01:06→11:04)
[2019-02-24] MEDS: PANTOprazole 40 MG TAB PO SCH (05:07)
[2019-02-24 08:05] LABS: Mean Corpuscular Hgb Conc 32.3 g/dL (32-36); Mean Platelet Volume 8.6 fL (7.4-10.4); Platelet Count 467 K/uL (130-400)
[2019-02-24] MEDS: LACTOBACILLUS ACIDOPHILUS 1 GM PACK PO SCH ×2 (08:27→11:49)
[2019-02-24 08:35] LABS: Basophils # (auto) 0.02 K/uL (0-0.2); Basophils % (auto) 0.2 %; Eosinophils # (auto) 0.04 K/uL (0-0.5); Eosinophils % (auto) 0.4 %; Hematocrit (blood only) 34.1 % (37-47); Immature Granulocytes # (auto) 0.01 K/uL (0.00-0.02); Immature Granulocytes % (auto) 0.1 %; Lymphocytes # (auto) 2.21 K/uL (1.2-3.4); Mean Corpuscular Hemoglobin 29.6 pg (25-34); Mean Corpuscular Volume 91.9 fL (80-100); Monocytes # (auto) 0.86 K/uL (0.11-0.59); Monocytes % (auto) 8.9 %; Neutrophils # (auto) 6.48 K/uL (1.4-6.5); Neutrophils % (auto) 67.4 %; RDW Coefficient of Variation 13.2 % (11.5-14.5); RDW Standard Deviation 44.3 fL (36.4-46.3); Red Blood Count 3.71 M/uL (4.2-5.4); White Blood Count 9.62 K/uL (4.8-10.8)
[2019-02-24] MEDS: IRBESARTAN 75 MG TAB PO SCH (08:35)
[2019-02-24] MEDS: DOCUSATE SODIUM 100 MG CAP PO SCH (08:35)
[2019-02-24] MEDS: ASPIRIN 81 MG ECTAB PO SCH (08:36)
[2019-02-24] MEDS: LORATADINE 10 MG TAB PO SCH (08:36)
[2019-02-24] MEDS: ROSUVASTATIN CALCIUM 20 MG TAB PO SCH (08:36)
[2019-02-24] MEDS: hydroCHLOROthiazide 25 MG TAB PO SCH (08:37)
[2019-02-24] MEDS: METOPROLOL TARTRATE 25 MG TAB PO SCH (08:38)
[2019-02-24] MEDS: CHOLECALCIFEROL (VITAMIN D) 400 UNITS TABLET PO SCH (08:38)
[2019-02-24] MEDS: OMEGA-3 (PURIFIED FISH OIL) 1 GM CAP PO SCH (08:38)
--- NOTE | 2019-02-24 09:07 | Surgery Progress Note ---
Date of Service February 24, 2019 Assessment & Plan (1) Colonic diverticular abscess: 02/24/19 clinically she is fairly back to normal at the time when I saw the patient this morning her laboratory was not back but her white counts are back to normal Long discussion with the patient at this time and recommendations are to continue her on p.o. Cipro and Flagyl for approximately 7 days she can certainly go back to [place] and I would recommend that she follow-up with her primary care at that time she said she has not really had a definitive relation with a surgeon there this should be followed up for a recommend her to undergo elective sigmoid colon resection in the future Regarding the abscess is clinically she is improving I will leave the discretion of her primary care whether or not to repeat a CT scan in approximately a week or so sooner if the condition deteriorates Regarding her diet I recommended her to be a low fiber diet until her stools completely normalize and she should be on a high-fiber diet Thank you for allowing us to participate in care of your patient WBC downtrending , 12.7 today Continue on IV abx today Patient having some abdominal gas pains despite passing some flatus and having a BM. Would continue on clear liquids until symptoms improve Encourage activity as tolerates Replete electrolytes as needed, K 3.2 today Can consider re-scanning at OSH near her home if needed in 7-10 days She is hopeful to be able to catch her flight on Sunday to Patient seen and examined with Dr. Garcia Subjective 02/24/19 Patient feels much better minimal to no abdominal discomfort she has moved her bowels she is up and around ROS Constitutional: no chills, aches, sweats or fever Respiratory: no sob,cough, sputum, or wheezing Cardiac: no chest pain, palpitations, edema, orthopnea or lightheadedness GI: see HPI : no dysuria or hesitancy Extremities: no joint pain or weakness Skin: no rash All other systems reviewed and negative Physical Exam Physical Exam: No acute issues pretty much back to normal Results & Data Vital Signs (Past 12 Hours) Vital Signs Temp Pulse Resp BP Pulse Ox 02/24/19 08:33 59 L 135/77 02/24/19 06:56 36.9 C 59 L 16 150/81 H 97 02/23/19 23:21 37.0 C 70 18 117/70 94 PG Care Time/CCT Total # of Minutes Spent Total Time Spent with Patient: Total time spent is greater than 50% in coordination of care (as documented) at patient's floor/unit and/or counseling patient:
--- NOTE | 2019-02-24 09:09 | Surgery Progress Note ---
Date of Service February 24, 2019 Assessment & Plan (1) Colonic diverticular abscess: 02/24/19 Patient overall feeling much improved WBC downtrending, 9.6 today and patient afebrile She is tolerating clears and having + bowel function Okay to advance to low fiber diet. Instructed patient to continue low fiber until her BMs normalize Okay to discharge from surgical standpoint on a course of po antibiotics Instructed patient to follow up with her PCP when she gets home, they may want to repeat a CT scan Patient seen and examined with Dr. barrios Subjective patient feels well this AM. She is passing flatus and having BMs. pain is impr shruthi. Physical Exam Physical Exam: awake/alert Constitutional: well developed and well nourished; no acute distress Results & Data Vital Signs (Past 12 Hours) Vital Signs Temp Pulse Resp BP Pulse Ox 02/24/19 08:33 59 L 135/77 02/24/19 06:56 36.9 C 59 L 16 150/81 H 97 02/23/19 23:21 37.0 C 70 18 117/70 94 PG Care Time/CCT Total # of Minutes Spent Total Time Spent with Patient: Total time spent is greater than 50% in coordination of care (as documented) at patient's floor/unit and/or counseling patient:
--- NOTE | 2019-02-26 22:55 | Discharge Summary ---
Date of Service February 24, 2019 Admission HPI Per Admitting Provider This is a 68-year-old female with past medical history of diverticulitis, hypercholesterolemia, fibromyalgia that presents today complaining of abdominal pain. Patient is accompanied by her both are good historians. Patient is from [place] and is visiting this area to [facility] while her son and his travel. Patient was in the hospital in [place] earlier this month with acute diverticulitis and microperforation. She tells me she was hospitalized for a few days but did well and was subsequently discharged with Flagyl and Levaquin p.o. Patient traveled here and continue the antibiotics which she finished 5 days ago. She was doing well up until approximately 1:00 this morning when she had sharp, acute abdominal pain on the left side. She was having nausea but no vomiting. She recognized the symptoms as recurrent diverticulitis and presented to the emergency room for further evaluation. Patient is complaining of some hemorrhoidal pain as she has been having ongoing diarrhea. She notes that she was having diarrhea previously and C. difficile was considered as a diagnosis at the outside facility. However, she was never actually tested and was given a sample collection kit after discharge. She tells me her diarrhea has tapered off quite a bit since then and she does feel constipated at this point. She denies any acute fevers or chills. She also denies any chest pain, shortness of breath, lower extremity edema, palpitations. Principal Diagnosis Diverticulitis Discharge Exam General: no distress Eyes: normal inspection, PERLL Respiratory: chest non tender, clear to auscultation, normal breath sounds, no respiratory distress, no accessory muscle use Cardiac: regular rate and rhythm, no rub or gallop, no murmur, no edema, no jvd GI/: active bowel sounds, no abd pain or tenderness, soft, non distended Extremities: normal range of motion, normal strength, non tender Neuro/Psych: alert and oriented x 3, normal mood and affect Skin: normal color, dry Discharge Data Allergies Allergy/AdvReac Type Severity Reaction Status Date / Time Sulfa (Sulfonamide Allergy Hives Unverified 02/21/19 12:40 Antibiotics) Consultations 02/21/19 12:55 ED Decision to Admit Stat 02/21/19 14:36 Consult General Surgery Routine 02/24/19 15:48 Burn CD for patient Stat Ordered Studies 02/21/19 10:45 CT abd pelvis IV con only Stat Hospital Course (1) Diverticulitis: Patient has acute recurrent diverticulitis complicated with a 4 cm abscess. - continue IV Zosyn as ordered in the ER. - advanced to clears per surgery - leukocytosis improving - consulted surgery - leukocytosis and symptoms improving, no surgery for now. Surgery recommends she have follow up imaging in 7-10 days. Patient is planning to fly home on Sunday. -Will discharge patient on augmentin and low fiber diet. will recheck potassium on sunday as outpatient. (2) HTN (hypertension): Continue hydrochlorothiazide and irbesartan (3) High cholesterol: Continue home statin (4) Fibromyalgia: Patient does not appear to take medicines for this (5) Hypokalemia: replaced, Total Time Total Time Spent Total Time Spent (In Minutes): 32 Total Time Includes: Examination of the Patient, Discharge Planning and Medication Reconciliation Discharge Plan Discharge Items Patient Disposition: Home - Self-Care Reason For Visit: COMPLICATED DIVERTICULITIS Discharge Diagnosis: diverticulitis Activity: Resume your previous activity Non-emergency contact: Primary Care Provider Call non-emergency contact if: you have any medication questions Follow-up/Referrals: PCP,NO [Primary Care Provider] - Diet: Low Fiber Addtl Attending Provider Instructions: You have been hospitalized for an acute diverticulitis During your stay at [facility], we have made an effort to correct the problem that brought you to the hospital while keeping you as comfortable as possible. Antibiotics were used to bring your condition under control and your discharge instructions will include directions for any medications you should take after leaving the hospital. Please make sure you see your Primary Care Provider as part of your follow up plan. Please continue a low fiber diet: You can eat most types of food on a low-fiber diet, including meats, white breads, and many fruits and vegetables. Here are some examples of low-fiber foods: Cooked red meat, fish, or poultry Eggs Dairy products, such as milk, ice cream, cheese, cottage cheese, and yogurt (as long as they don't contain fruits or nuts) Well-cooked fresh or canned vegetables that don't have skins or seeds. Lettuce Canned or cooked fruit with no skin or seeds Ripe bananas, melons, and peaches without skin Fruit juices without pulp Applesauce Refined white breads White rice or white pasta Saltine crackers Pending Studies at Discharge: No Stand-Alone Forms: My [facility], Smoking Cessation Medications and DC Order Prescriptions: New amoxicillin-pot clavulanate [Augmentin] 875-125 mg tablet 1 tab PO Q8H Qty: 21 RF: 0 potassium chloride 10 mEq tablet extended release 10 meq PO BID Qty: 6 RF: 0 Continued irbesartan-hydrochlorothiazide 150-12.5 mg Tablet 0.5 tab PO QAM RF: 0 isosorbide mononitrate 30 mg Tablet Extended Release 24 Hr 15 mg PO QPM RF: 0 pantoprazole 40 mg Tablet,Delayed Release (Dr/Ec) 40 mg PO DAILYBB RF: 0 cholecalciferol (vitamin D3) [Vitamin D3] 400 unit Capsule 800 unit PO UD RF: 0 rosuvastatin 20 mg Tablet 20 mg PO 3XWK RF: 0 hydrochlorothiazide 12.5 mg Tablet 12.5 mg PO QAM RF: 0 omega 2-jrt-mxb-fish oil [Fish Oil] 1,000 mg (120 mg-180 mg) Capsule 1 cap PO DAILY RF: 0 multivitamin Tablet 1 tab PO QAM RF: 0 aspirin [Aspirin Low Dose] 81 mg Tablet,Delayed Release (Dr/Ec) 81 mg PO DAILY RF: 0 olopatadine [Patanol] 0.1 % Drops 1 drp OPB BID RF: 0 nitroglycerin 0.4 mg Tablet, Sublingual 0.4 mg sublingual DIRECTED PRN (Reason: Chest Pain) RF: 0 loratadine [Claritin] 10 mg Tablet 10 mg PO QAM RF: 0 garlic Tablet 1,000 mg PO QAM RF: 0 coenzyme Q10 [CoQ-10] 100 mg Capsule 100 mg PO QPM RF: 0 tvthstfnaly-tnhwojsua-mtg C-Mn [Glucosamine Chondroitin MaxStr] 500-400 mg Capsule 0 cap PO QAM RF: 0 vitamin B complex-folic acid [B Complex 1 (with folic acid)] 0.4 mg Tablet 1 tab PO QPM RF: 0 Ocuvite with Lutein 1,000 unit-200 mg-60 unit-2 mg Tablet 1 tab PO QPM RF: 0 metoprolol tartrate 25 mg Tablet 12.5 mg PO BID RF: 0 Discharge Orders: Discharge Order (Routine); Ordered 02/24/19 Ordered By: Eriberto Reyes Admission Data Admit Date/Time: 02/21/19 13:34 Attending Provider: Eriberto Reyes Admit Provider: Adriano Mcclain Primary Care Provider: PCP,NO Other Providers: Trenton Garcia ; Isidro Vital Other Interventions: Discharge Summary Assessment (RN) Last Done: 02/24/19 17:03 DC Date/Time DO NOT enter until pt leaves facility: 02/24/19 17:15
== END 2019-02-24 17:15 | disposition home or self-care (01) | DRG 392 ==
LOC: ED 10:25 → SUATTDRO 13:34 → 3N 13:34